=== PATIENT | female | born 1950 | race Caucasian/White ===

== ENCOUNTER 2017-10-22 18:07 | Observation (INO) | payer OTHER ==
[2017-10-22] MEDS ORDERED: LET GEL TOPICAL 1 EA SYR TP ONE (18:34)
--- NOTE | 2017-10-22 18:52 | EDPHY ---
H & P Stated Complaint: Fell running this morning; lac to R elbow Time Seen by Provider: 10/22/17 18:38 HPI/ROS: CHIEF COMPLAINT: Right elbow laceration HISTORY OF PRESENT ILLNESS: Patient is a 67-year-old female who comes to the emergency department complaining of laceration to right elbow. It happened at 9 :00 a.m. This morning while she was running on her 11 mi in a race. She fell onto her right elbow. She states that she is so tired she essentially collapsed. She denies other injuries. She denies syncope. She denies head or neck injury. She states that it was wrapped initially it seemed to stop bleeding but when she went home to wash it out it began bleeding again it seems to be watery blood and will not stop. Normal range of motion. Some surrounding bruising. No obvious deformity Severity: Moderate Modifying factors: Movement REVIEW OF SYSTEMS: Constitutional: denies: chills, fever, recent illness, recent injury EENTM: denies: blurred vision, double vision, nose congestion Respiratory: denies: cough, shortness of breath Cardiac: denies: chest pain, irregular heart rate, lightheadedness, palpitations Gastrointestinal/Abdominal: denies: abdominal pain, diarrhea, nausea, vomiting, blood streaked stools Genitourinary: denies: dysuria, frequency, hematuria, pain Musculoskeletal: See HPI Skin: See HPI Neurological: denies: headache, numbness, paresthesia, tingling, dizziness, weakness Hematologic/Lymphatic: denies: blood clots, easy bleeding, easy bruising Immunologic/allergic: denies: HIV/AIDS, transplant 10 systems reviewed and negative except as noted EXAM: GENERAL: Well-appearing, well-nourished and in no acute distress. HEAD: Atraumatic, normocephalic. EYES: Pupils equal round and reactive to light, extraocular movements intact, sclera anicteric, conjunctiva are normal. ENT: TMs normal, nares patent, oropharynx clear without exudates. Moist mucous membranes. NECK: Normal range of motion, supple without lymphadenopathy or JVD. LUNGS: Breath sounds clear to auscultation bilaterally and equal. No wheezes rales or rhonchi. HEART: Regular rate and rhythm without murmurs, rubs or gallops. ABDOMEN: Soft, nontender, normoactive bowel sounds. No guarding, no rebound. No masses appreciated. BACK: No CVA tenderness, no spinal tenderness, step-offs or deformities EXTREMITIES: Patient has a deep laceration to the right elbow that communicates with the bursa. Does not appear to communicate with the joint space. No obvious fracture Normal range of motion, no pitting or edema. No clubbing or cyanosis. NEUROLOGICAL: Cranial nerves II through XII grossly intact. Normal speech, normal gait. 5/5 strength, normal movement in all extremities, normal sensation , normal reflexes PSYCH: Normal mood, normal affect. SKIN: She has an additional laceration just distal to the elbow that is about 1 cm long but somewhat macerated. Source: Patient Exam Limitations: No limitations - Personal History Current Tetanus Diphtheria and Acellular Pertussis (TDAP): Yes - Medical/Surgical History Hx Asthma: No Hx Chronic Respiratory Disease: No Hx Diabetes: No Hx Cardiac Disease: No Hx Renal Disease: No Hx Cirrhosis: No Hx Alcoholism: No Hx HIV/AIDS: No - Family History Significant Family History: No pertinent family hx - Social History Smoking Status: Never smoked Alcohol Use: None Constitutional: Initial Vital Signs Temperature (C) 37.1 C 10/22/17 18:26 Heart Rate 75 10/22/17 18:26 Respiratory Rate 16 10/22/17 18:26 Blood Pressure 130/85 H 10/22/17 18:26 O2 Sat (%) 98 10/22/17 18:26 O2 Delivery Mode Room Air Allergies/Adverse Reactions: amoxicillin Allergy (Mild, Verified 10/22/17 18:29) GI upset cephalexin [From Keflex] Allergy (Mild, Verified 10/22/17 18:30) GI upset shellfish Allergy (Mild, Uncoded 10/22/17 18:30) GI upset Home Medications: Medication Instructions Recorded Citalopram [CeleXA 20 MG] 40 mg PO DAILY 10/22/17 buPROPion XL [Wellbutrin 150mg XL] 450 mg PO DAILY 10/22/17 Acetaminophen [Tylenol 325mg (*)] 650 mg PO Q4HRS PRN tab 10/23/17 Sulfamethox/Tmp 800/160 mg 1 tab PO BID #28 tab 10/23/17 [Bactrim Ds] oxyCODONE IR [Oxycodone Ir (*)] 5 - 10 mg PO Q4HRS PRN #30 tab 10/23/17 Medical Decision Making - Diagnostics Imaging: I viewed and interpreted images myself (Olecranon fracture) ED Course/Re-evaluation: Her wounds are old and grossly contaminated and 1 seems to communicate with the bursa. We discussed risks of closing these. Will leave them open. We have irrigated them thoroughly under local anesthetics. Will place antibiotic ointment and I will start her on oral antibiotics. She states that Keflex and penicillin make her vomit. Will start doxycycline. She was wrapped with a somewhat tight bandage. The x-rays have returned patient the patient has an olecranon fracture. This is likely an open fracture. I will page Ortho. 8:25 p.m. Discussed the case with Dr. Cisneros who will take to the OR. Glucose a dose of Ancef. Cephalosporin gives her a GI reaction. It will try IV. 8:50 p.m. I discussed the case with Dr. Herrera who will admit to the medical service. Differential Diagnosis: Partial list of the Differential diagnosis considered include but were not limited to; laceration, open bursa, foreign body and although unlikely based on the history and physical exam, I also considered fracture, vascular injury, nerve injury. I discussed these differential diagnoses and the plan with the patient as well as the usual and expected course. The patient understands that the diagnosis is provisional and that in medicine we are not always correct and that further workup is often warranted. Usual and customary warnings were given. All of the patient's questions were answered. The patient was instructed to return to the emergency department should the symptoms at all worsen or return, otherwise to followup with the physician as we discussed. - Data Points Medications Given: Discontinued Medications Acetaminophen (Tylenol) 650 mg PO Q4HRS PRN PRN Reason: Pain, Mild/Fever, Can Take PO Stop: 04/20/18 22:07 Last Admin: 10/23/17 11:32 Dose: 650 mg Bupivacaine HCl (Sensorcaine 0.5% Vial) Confirm Administered Dose 30 ml .ROUTE .STK-MED ONE Stop: 10/22/17 21:50 Last Admin: 10/22/17 22:03 Dose: 30 ml Doxycycline Hyclate (Doxycycline Hyclate) 100 mg PO EDNOW ONE PRN Reason: Protocol Stop: 10/22/17 18:54 Last Admin: 10/22/17 18:55 Dose: 100 mg Cefazolin Sodium/Dextrose (Ancef 1 Gm (Premix)) 50 mls @ 200 mls/hr IV EDNOW ONE PRN Reason: Protocol Stop: 10/22/17 20:43 Last Admin: 10/22/17 21:29 Dose: 50 mls Clindamycin Phosphate/Dextrose (Cleocin 900 Mg (Premix)) 50 mls @ 100 mls/hr IV ONCALL ONE PRN Reason: Protocol Stop: 10/22/17 21:25 Last Admin: 10/22/17 21:45 Dose: 50 mls Cefazolin Sodium/Dextrose (Ancef 2 Gm) 100 mls @ 200 mls/hr IV Q8H MORIAH PRN Reason: Protocol Stop: 11/22/17 05:29 Last Admin: 10/23/17 12:51 Dose: 100 mls Clindamycin Phosphate/Dextrose (Cleocin 600 Mg (Premix)) 50 mls @ 100 mls/hr IV Q8HRS MORIAH PRN Reason: Protocol Stop: 11/22/17 05:59 Last Admin: 10/23/17 13:25 Dose: 50 mls Midazolam HCl (Versed) 2 mg IVP ONCALL ONE Stop: 10/22/17 21:18 Last Admin: 10/23/17 00:22 Dose: Not Given Ondansetron HCl (Zofran) 4 mg IVP EDNOW ONE Stop: 10/22/17 20:31 Last Admin: 10/22/17 21:00 Dose: 4 mg Oxycodone HCl (Oxycodone Ir) 5 - 10 mg PO Q4HRS PRN PRN Reason: Pain, Severe Able to Take PO Stop: 11/01/17 22:09 Last Admin: 10/23/17 11:31 Dose: 10 mg Tetracaine/Epinephrine/Lidocaine (Let Gel Topical) 1 ea TP EDNOW ONE Stop: 10/22/17 18:35 Last Admin: 10/22/17 18:44 Dose: Not Given Departure - Departure Disposition: [facility] Acute Clinical Impression: Open fracture of right elbow Condition: Good
[2017-10-22] MEDS ORDERED: DOXYCYCLINE HYCLATE 100 MG CAP/TAB PO ONE (18:53)
[2017-10-22] MEDS ORDERED: ONDANSETRON 4 MG/2 ML VIAL IVP ONE (20:30)
[2017-10-22] MEDS ORDERED: CLINDAMYCIN 900 MG/DEXTROSE 50 ML IV ONE (20:56)
[2017-10-22] MEDS ORDERED: MIDAZOLAM 2 MG/2 ML VIAL IVP ONE (21:17)
--- NOTE | 2017-10-22 21:17 | PDANEPAE ---
ANE History of Present Illness 67 yo for orif elbow ANE Past Medical History - Cardiovascular History Hx Hypertension: No Hx Arrhythmias: No Hx Chest Pain: No Hx Coronary Artery / Peripheral Vascular Disease: No Hx CHF / Valvular Disease: No Hx Palpitations: No - Pulmonary History Hx COPD: No Hx Asthma/Reactive Airway Disease: No - Endocrine History Hx Diabetes: No ANE Review of Systems Review of Systems: - Exercise capacity METS (RN): 4 METS ANE Patient History - Allergies Allergies/Adverse Reactions: amoxicillin Allergy (Mild, Verified 10/22/17 18:29) GI upset cephalexin [From Keflex] Allergy (Mild, Verified 10/22/17 18:30) GI upset shellfish Allergy (Mild, Uncoded 10/22/17 18:30) GI upset - Home Medications Home medications: home medication list seen and reviewed Home Medications: Citalopram [CeleXA] 40 mg PO DAILY 10/22/17 [Last Taken 10/22/17] buPROPion XL [Wellbutrin Xl] 450 mg PO DAILY 10/22/17 [Last Taken 10/22/17] - NPO status NPO Since - Liquids (Date): 10/22/17 NPO Since - Liquids (Time): 13:00 NPO Since - Solids (Date): 10/22/17 NPO Since - Solids (Time): 13:00 - Anes Hx Anes Hx: no prior problems - Smoking Hx Smoking Status: Never smoked - Alcohol Use Alcohol Use: None ANE Labs/Vital Signs - Vital Signs Blood Pressure: 130/85 Heart Rate: 75 Respiratory Rate: 16 O2 Sat (%): 98 Height: 5 ft 7 in Weight: 53.07 kg ANE Physical Exam - Airway Neck exam: FROM Mallampati Score: Class 2 Mouth exam: normal dental/mouth exam - Pulmonary Pulmonary: no respiratory distress - Cardiovascular Cardiovascular: regular rate and rhythym - ASA Status ASA Status: I, E ANE Anesthesia Plan Anesthesia Plan: general endotracheal anesthesia
[2017-10-22 21:22] LABS: PLATELET COUNT 261 10^3/uL (150-400)
[2017-10-22] MEDS ORDERED: fentaNYL 100 MCG/2 ML INJ ONE (21:23)
[2017-10-22] MEDS ORDERED: REMIFENTANIL HCL 1 MG VIAL ONE (21:23)
[2017-10-22] MEDS ORDERED: PROPOFOL/EMULSION 500 MG/50 ML BOTTLE IV ONE (21:23)
[2017-10-22] MEDS ORDERED: ROCURONIUM 50 MG/5 ML VIAL ONE (21:29)
[2017-10-22] MEDS ORDERED: ONDANSETRON 4 MG/2 ML VIAL ONE (21:29)
[2017-10-22] MEDS ORDERED: DEXAMETHASONE 4 MG/ML VIAL ONE (21:29)
[2017-10-22 21:30] LABS: INR 0.99 (0.83-1.16); PROTIME(PATIENT) 13.3 SEC (12.0-15.0)
[2017-10-22] MEDS ORDERED: BUPIVACAINE 0.5% 30 ML SDV ONE (21:49)
[2017-10-22] MEDS ORDERED: ACETAMINOPHEN 325 MG TAB PO PRN (22:08)
[2017-10-22] MEDS ORDERED: ONDANSETRON 4 MG/2 ML VIAL IVP PRN ×2 (22:08→22:47)
[2017-10-22] MEDS ORDERED: ONDANSETRON DISINTEGRATING 4 MG TAB PO PRN (22:08)
--- NOTE | 2017-10-22 22:20 | GCON ---
H AND P/CONSULT NOTE DATE OF CONSULTATION: 10/22/2017 CHIEF COMPLAINT: Right elbow open olecranon fracture. HISTORY OF PRESENT ILLNESS: This is a 67-year-old female who was seen in the emergency department wi th an elbow laceration, and was diagnosed with an open olecranon fracture. This happened at 9 a.m. t his morning. She fell onto her right elbow when she was running. She initially had this wrapped to stop bleeding, began washing it out, but it did not stop bleeding. She presented to the emergency ro om after some delay. PAST MEDICAL HISTORY: She denies significant past medical history. PAST SURGICAL HISTORY: Denies significant surgical history. FAMILY HISTORY: Reviewed and noncontributory. SOCIAL HISTORY: She never smoked. ALLERGIES: To amoxicillin, cephalexin. MEDICATIONS: Celexa, Vibramycin, Imitrex, and Wellbutrin. REVIEW OF SYSTEMS: A 10-point review of systems otherwise negative. EXAM: GENERAL: She is alert. She is oriented. She is appropriate. She is stable. She is well ap pearing. She appears in no acute distress. HEENT: Her head is atraumatic, normocephalic. Her eyes are equal and reactive. Her face is atraumatic. NECK: Supple. HEART: Regular rate and rhythm. LUNGS: Good inspiratory effort. ABDOMEN: Soft. UPPER EXTREMITIES: Right upper extremity is in a bandage. She is neurovascularly intact in her hand with good flexion and extension of the fingers, g ood flexion and extension of the wrist, and sensation is intact. I did not range her elbow, given th e known fracture. She has no tenderness to the shoulder. Left upper extremity shows no areas of ten derness or range of motion difficulties. Her lower extremities are atraumatic, and there is no tende rness. She is neurovascularly intact. IMAGING: Radiographs show a displaced olecranon fracture and air communicating in the joint. PLAN: We will take her to the operating room for irrigation and debridement, as well as open reducti on, internal fixation for open olecranon fracture. Unfortunately, she presented somewhat late to the emergency room, as this did happen this morning. However, we will wash her out as quick as we can, and she is getting antibiotics of clindamycin, as she is allergic to cephalosporins. We discussed th e increased risk of infection, given the open fracture and delayed presentation, as well as the risk of nonunion, malunion, continued pain, hardware prominence, need for hardware removal. She will be a dmitted to the hospital after surgery. She is in agreement with this plan. /[id number]/MODL
[2017-10-22] MEDS ORDERED: GLYCOPYRROLATE 0.2 MG/1 ML VIAL ONE ×2 (22:40)
[2017-10-22] MEDS ORDERED: NEOSTIGMINE METHYLSULFATE 5 MG/5 ML SYR ONE (22:40)
[2017-10-22] MEDS ORDERED: NALOXONE HCL 0.4 MG/ML INJ IVP PRN (22:47)
[2017-10-22] MEDS ORDERED: PROMETHAZINE HCL 25 MG/ML INJ IVP PRN (22:47)
[2017-10-22] MEDS ORDERED: fentaNYL 100 MCG/2 ML INJ IVP PRN (22:47)
--- NOTE | 2017-10-22 23:16 | POSTOPPROG ---
Post Op Note Date of Operation: 10/22/17 Surgeon: Edgardo Cisneros Agriculture Manager: none Anesthesiologist: Britney Anesthesia: GET(General Endotracheal) Pre-op Diagnosis: R open olecranon fx Post-op Diagnosis: same Indication: above Procedure: I and D and orif R olecranon Inf/Abcess present in the surg proc area at time of surgery?: Yes Depth: Deep Incisional (Fascial) EBL: 50-100
[2017-10-23] MEDS: oxyCODONE IR 5 MG TAB PO PRN ×3 (00:05→11:31)
--- NOTE | 2017-10-23 00:21 | PDGENHP ---
History and Physical - Chief Complaint Fall - History of Present Illness 67 yo F w/ no significant PMHx presents after a fall. She was running a race this morning when her legs gave out from exhaustions and she fell onto her R arm. This happened in the morning. She presented to the ED in the evening with pain. XR revealed open olecranon fracture. She was taken to the OR by Dr. Cisneros for ORIF and I&D. I evaluated her in the post-op setting. She is doing well with only mild R arm pain. She denies other symptoms. Case discussed with Dr. Franco; records reviewed in EMR. History Information - Allergies/Home Medication List Allergies/Adverse Reactions: amoxicillin Allergy (Mild, Verified 10/22/17 18:29) GI upset cephalexin [From Keflex] Allergy (Mild, Verified 10/22/17 18:30) GI upset shellfish Allergy (Mild, Uncoded 10/22/17 18:30) GI upset Home Medications: Citalopram [CeleXA] 40 mg PO DAILY 10/22/17 [Last Taken 10/22/17] buPROPion XL [Wellbutrin Xl] 450 mg PO DAILY 10/22/17 [Last Taken 10/22/17] I have personally reviewed and updated: family history, medical history - Past Medical History no pertinent PMH - Surgical History Reports: no pertinent surgical hx - Family History Additional family history: Asked, denies - Social History Smoking Status: Never smoked Alcohol Use: None Review of Systems Review of Systems: ROS: 10pt was reviewed & negative except for what was stated in HPI & below Physical Exam Physical Exam: Temp Pulse Resp BP Pulse Ox 36.8 C 80 14 124/72 H 98 10/23/17 00:10 10/23/17 00:10 10/23/17 00:10 10/23/17 00:10 10/23/17 00:10 O2 (L/minute) 2 Constitutional: appears nourished, uncomfortable Eyes: PERRL, EOMI Ears, Nose, Mouth, Throat: moist mucous membranes, no oral mucosal ulcers Cardiovascular: regular rate and rhythym, no murmur, rub, or gallop Respiratory: no respiratory distress, clear to auscultation Gastrointestinal: normoactive bowel sounds, soft, non-tender abdomen Skin: warm, normal color Musculoskeletal: no muscle tenderness, other (R arm bandaged) Neurologic: AAOx3, CN II-XII Intact Psychiatric: interacting appropriately, not anxious Lab Data & Imaging Review 10/22/17 20:50 10/22/17 20:50 WBC 8.92 10^3/uL (3.80-9.50) 10/22/17 20:50 RBC 4.22 10^6/uL (4.18-5.33) 10/22/17 20:50 Hgb 13.1 g/dL (12.6-16.3) 10/22/17 20:50 Hct 37.7 % (38.0-47.0) L 10/22/17 20:50 MCV 89.3 fL (81.5-99.8) 10/22/17 20:50 MCH 31.0 pg (27.9-34.1) 10/22/17 20:50 MCHC 34.7 g/dL (32.4-36.7) 10/22/17 20:50 RDW 12.1 % (11.5-15.2) 10/22/17 20:50 Plt Count 261 10^3/uL (150-400) 10/22/17 20:50 MPV 9.0 fL (8.7-11.7) 10/22/17 20:50 Neut % (Auto) 55.2 % (39.3-74.2) 10/22/17 20:50 Lymph % (Auto) 34.4 % (15.0-45.0) 10/22/17 20:50 Creek % (Auto) 8.5 % (4.5-13.0) 10/22/17 20:50 Eos % (Auto) 0.9 % (0.6-7.6) 10/22/17 20:50 Baso % (Auto) 0.8 % (0.3-1.7) 10/22/17 20:50 Nucleat RBC Rel Count 0.0 % (0.0-0.2) 10/22/17 20:50 Absolute Neuts (auto) 4.92 10^3/uL (1.70-6.50) 10/22/17 20:50 Absolute Lymphs (auto) 3.07 10^3/uL (1.00-3.00) H 10/22/17 20:50 Absolute Monos (auto) 0.76 10^3/uL (0.30-0.80) 10/22/17 20:50 Absolute Eos (auto) 0.08 10^3/uL (0.03-0.40) 10/22/17 20:50 Absolute Basos (auto) 0.07 10^3/uL (0.02-0.10) 10/22/17 20:50 Absolute Nucleated RBC 0.00 10^3/uL (0-0.01) 10/22/17 20:50 Immature Gran % 0.2 % (0.0-1.1) 10/22/17 20:50 Immature Gran # 0.02 10^3/uL (0.00-0.10) 10/22/17 20:50 PT 13.3 SEC (12.0-15.0) 10/22/17 20:50 INR 0.99 (0.83-1.16) 10/22/17 20:50 APTT 23.8 SEC (23.0-38.0) 10/22/17 20:50 Sodium 136 mEq/L (135-145) 10/22/17 20:50 Potassium 4.0 mEq/L (3.3-5.0) 10/22/17 20:50 Chloride 102 mEq/L (97-110) 10/22/17 20:50 Carbon Dioxide 27 mEq/l (22-31) 10/22/17 20:50 Anion Gap 7 mEq/L (8-16) L 10/22/17 20:50 BUN 34 mg/dL (7-23) H 10/22/17 20:50 Creatinine 0.7 mg/dL (0.6-1.0) 10/22/17 20:50 Estimated GFR > 60 10/22/17 20:50 Glucose 82 mg/dL (70-100) 10/22/17 20:50 Calcium 9.2 mg/dL (8.5-10.4) 10/22/17 20:50 Imaging Review: Imaging Impressions Elbow X-Ray 10/22/17 20:00 Impression: Acute intraarticular proximal ulnar fracture with retracted olecranon fracture fragment. Assessment & Plan Assessment: 67 yo F presents with open fracture or R olecranon. Plan: 1. Open fracture of R olecranon - Occurred as a result of a fall during a race. There was some delay in treatment since patient did not present to the hospital for several hours. She is now s/p I&D and ORIF per Dr. Cisneros. - Doing well post-operatively - Oxycodone and morphine PRN for pain control - Will continue Clindamycin IV for at least 24 hours noting increased risk of OM with open fracture (Cephalosporin allergy) Diet - Regular Code - Full Ppx - SCDs Dispo - Admit under observation status
--- NOTE | 2017-10-23 01:01 | GOP ---
DATE OF OPERATION: 10/22/2017 SURGEON: Edgardo Cisneros MD LEASE PURCHASE DRIVER: None. ANESTHESIA: General, with supplemental 0.5% plain Marcaine 30 cc. PREOPERATIVE DIAGNOSIS: 1. Right open olecranon fracture. POSTOPERATIVE DIAGNOSIS: 1. Right open olecranon fracture. PROCEDURE PERFORMED: 1. Irrigation and debridement including bone, right olecranon fracture. 2. Open reduction, internal fixation, right olecranon fracture. Implant: Synthes olecranon plate. FINDINGS: SPECIMENS: None. ESTIMATED BLOOD LOSS: 10 mL. INDICATIONS: 67-year-old female who was running a marathon race earlier today. She fell at mile 11, sustaining this injury. She actually finished the race, went home, and was bleeding and could not g et the oozing to stop. She presented to the ER later on in the evening, around 8 p.m. She was worke d up, diagnosed with the open fracture. I was called and I am going to take her right to the OR for irrigation, debridement, and treatment of the open fracture with ORIF. I discussed the risks of infe ction, especially given her delayed presentation, nerve injury, nonunion, malunion, continued pain an d irritation of the hardware. She elected to proceed. Informed consent obtained. All questions wer e answered. She was marked preoperatively. DESCRIPTION OF PROCEDURE: She was taken to the operative suite, sterilely prepped and draped in norm al fashion. Time-out was performed to verify the site, side, location, agreement of team. Esmarch w as utilized. The tourniquet was inflated. I made an incision over the olecranon, working on the lat eral side of this, and utilized 1 of the open lacerations and ellipsed this out, removing the damaged tissue. I exposed the olecranon fracture, debrided this, thoroughly irrigated this with 3 L normal saline. There was comminution on both sides. However, there was 1 good fracture centrally. I clean ed out the joint, inspected this, and removed loose bone. I then brought the fracture ends together with the clamp and held this with a K-wire, and checked this fluoroscopically. I then placed the ole cranon plate on this and brought this to bone with a cortical screw distally in the slot hole. I the n used a cortical screw proximally as a home-run screw across the fracture with good compression acro ss the fracture. I then retightened the distal cortical screw. I then placed locking screws and ano ther distal cortical screw, checking this fluoroscopically. She has good range of motion, no impinge ment of the hardware, good reduction, and good hardware placement. I thoroughly irrigated her; close d with #1 Vicryl, including the partial triceps split and most comminuted areas with 0 Vicryl, 2-0 Vi cryl, 3-0 Quill as well as Dermabond and then nylon on the open lacerations, another small open wound more laterally that was closed after having been debrided, cleaned, and irrigated as well. She was taken to PACU in stable condition in a splint and a sterile dressing. COMPLICATIONS: None. DRAINS: None. CONDITION: Stable. /[id number]/MODL
[2017-10-23 05:09] LABS: PLATELET COUNT 227 10^3/uL (150-400)
[2017-10-23] MEDS: ceFAZolin 2 GM/DEXTROSE 100 ML IV SCH ×2 (05:22→12:51)
[2017-10-23] MEDS: CLINDAMYCIN 600 MG/DEXTROSE 50 ML IV SCH ×2 (05:48→13:25)
[2017-10-23 12:35] VITALS: BP 92/54
--- NOTE | 2017-10-23 13:49 | SOAPPROG ---
SOAP Progress Note Assessment/Plan: Assessment: R open olecranon fx s/p I and D and orif Plan: cont ancef d/c on bactrim for open fracture treatment stay in splint elevate ice non wt bearing RUE keep dry f/u in 10 days 10/23/17 13:47 Subjective: minimal pain in elbow Objective: Vital Signs Temp Pulse Resp BP Pulse Ox 36.6 C 76 16 92/54 L 93 10/23/17 08:00 10/23/17 12:34 10/23/17 12:34 10/23/17 12:34 10/23/17 12:34 Laboratory Results 10/23/17 04:55 10/23/17 04:55 10/22/17 10/23/17 10/24/17 05:59 05:59 05:59 Intake Total 1575 Output Total 320 Balance 1255 PT 13.3 SEC (12.0-15.0) 10/22/17 20:50 INR 0.99 (0.83-1.16) 10/22/17 20:50 splint cdi hand nvi on right ICD10 Worksheet Patient Problems: Problems Problem Status Onset Open fracture of right elbow Acute
[2017-10-24] MEDS ORDERED: buPROPion XL 150 MG TAB PO SCH (09:00)
[2017-10-24] MEDS ORDERED: CITALOPRAM 20 MG TAB PO SCH (09:00)
--- NOTE | 2017-10-25 10:07 | POSTANESTH ---
Post Anesthetic Evaluation Cardiovascular Status: Normal, Stable Respiratory Status: Normal, Stable Level of Consciousness/Mental Status: Can Participate in Eval Pain Control: Adequate, Prn Tx Ordered Nausea/Vomiting Control: Adequate, Prn Tx Ordered Complications Possibly Related to Anesthesia: None Noted
== END 2017-10-23 14:11 | disposition home or self-care (01) ==
LOC: F3N 23:56
PROVIDERS: ADMIT Internal Medicine; ATTEND Internal Medicine
DX: S52.031A Displaced fracture of olecranon process with intraarticular extension of right ulna, initial encounter for closed fracture (principal); S51.011A Laceration without foreign body of right elbow, initial encounter; W01.0XXA Fall on same level from slipping, tripping and stumbling without subsequent striking against object, initial encounter; Y93.02 Activity, running; Y92.9 Unspecified place or not applicable
CPT/HCPCS: 11012; 24685; 73080; 96365; 96375; 99285; C1713; G0378; J0690; J1100; J2405; J2704; J2710; J3010